=== PATIENT | male | born 1990 | race Caucasian/White ===

== ENCOUNTER 2017-12-23 02:30 | Emergency (ER) | payer SELFPAY ==
[2017-12-23] MEDS ORDERED: Lidocaine 1% w/Epinephrine 1:100K 20 ML VIAL ONE (02:56)
[2017-12-23] MEDS ORDERED: Adacel (T-DAP) 0.5 ML VIAL ONE (03:35)
== END 2017-12-23 05:09 | disposition home or self-care (01) ==
LOC: ERS 02:30
DX: S41.111A Laceration without foreign body of right upper arm, initial encounter (principal); Z23 Encounter for immunization; W27.8XXA Contact with other nonpowered hand tool, initial encounter
CPT/HCPCS: 12002; 90471; 90715; J2001